=== PATIENT | male | born 1980 | race African-American/Black ===

== ENCOUNTER 2019-05-23 09:29 | Emergency (ER) | payer OTHER ==
[~2019-05-23] VITALS: Ht 182.9 cm; Wt 124.0 kg
--- NOTE | 2019-05-23 09:33 | NUR ---
PT WAS A CODE 25O IN ICU WHILE VISITING HIS MOM, UNWITNESSED FALL, POSSIBLE SYNCOPAL EPISODE. PER CODE 250 RN, FSBG 89. PT AAO X 4, ROOM AIR, NO C/O PAIN AT THIS TIME, JUST STATES HE IS UNDER A LOT OF STRESS WITH HIS MOM BEING SICK. PT STATES "I THINK I HAD A PANIC ATTACK AND JUST PASSED OUT." PT DRESSED IN GOWN AND ON FULL MONITOR, SIDERAIL X [address]. PT DENIES NAUSEA BUT DID STATE NO FOOD THIS MORNING. EKG COMPLETED AT THIS TIME, FAMILY AT BEDSIDE AND CALL LIGHT WITHIN REACH.
--- NOTE | 2019-05-23 09:41 | NUR ---
AT BEDSIDE FOR EXAM.
--- NOTE | 2019-05-23 09:56 | NUR ---
XRAY AT BEDSIDE.
[2019-05-23 10:21] VITALS: BP 134/71
--- NOTE | 2019-05-23 10:22 | NUR ---
ALL RESULTS BACK AT THIS TIME, CHART UP FOR RECHECK.
--- NOTE | 2019-05-23 10:44 | NUR ---
MD AT BEDSIDE FOR REASSESSMENT, PLAN FOR DISCHARGE.
--- NOTE | 2019-05-23 11:27 | NUR ---
Patient/Caregiver given discharge instructions and they have confirmed that they understand the instructions. Patient ambulatory with steady gait.
== END 2019-05-23 11:29 ==
LOC: ED 11:23
DX: F41.1 Generalized anxiety disorder (principal); R55 Syncope and collapse
CPT/HCPCS: 71045; 82962; 93005; 99283

== ENCOUNTER 2020-08-26 07:15 | Emergency (ER) | payer MEDICAID ==
[~2020-08-26] VITALS: Ht 167.6 cm; Wt 117.9 kg
[2020-08-26 07:59] VITALS: BP 133/106
--- NOTE | 2020-08-26 08:03 | NUR ---
PT REC'VD DISCHARGE INSTRUCTIONS AND EDUCATION. PT HAD NO FURTHER QUESTIONS. PT AMBULATED TO DC AREA, STEADY GAIT.
== END 2020-08-26 08:05 | disposition home or self-care (01) ==
LOC: ED 07:59
DX: J00 Acute nasopharyngitis [common cold] (principal)
CPT/HCPCS: 99282

== ENCOUNTER 2020-12-18 07:14 | Emergency (ER) | payer MEDICAID ==
[~2020-12-18] VITALS: Ht 167.6 cm; Wt 120.0 kg
[2020-12-18 07:23] VITALS: BP 128/80
--- NOTE | 2020-12-18 07:40 | NUR ---
Pt with cold like symptoms. Needs COVID test to return to work. Nasal congestion. Denies fever or cough.
== END 2020-12-18 08:00 | disposition home or self-care (01) ==
LOC: ED 07:30
DX: J00 Acute nasopharyngitis [common cold] (principal); Z20.822 Contact with and (suspected) exposure to COVID-19
CPT/HCPCS: 99283; U0003; U0005